=== PATIENT | male | born 1985 | race Caucasian/White ===

== ENCOUNTER → 2021-06-22 14:32 | Outpatient (CLI) | payer BC, SELFPAY | PROVIDERS: PCP Internal Medicine Adolescent Medicine; Visit Provider Urology | DX: Z01.812 Encounter for preprocedural laboratory examination (principal); Z11.52 Encounter for screening for COVID-19; Z30.2 Encounter for sterilization | CPT/HCPCS: C9803; U0003; U0005 ==

== ENCOUNTER 2021-06-24 08:43 | Day surgery (SDC) | payer BC, SELFPAY ==
[2021-06-22 11:13] VITALS: BMI 23.1
[2021-06-24 09:01] VITALS: BP 126/82; PULSE 66; RESP 16; TEMP 36.7; O2SAT 100
[2021-06-24 10:38] VITALS: BP 96/57; PULSE 94; RESP 18; TEMP 36.5; O2SAT 97
[2021-06-24 10:48] VITALS: BP 103/81; PULSE 85; RESP 18; O2SAT 100
--- NOTE | 2021-06-24 10:49 | P.PN_ITS ---
[facility] Anesthesia Checklist - Patient Identification Patient Identification: Arm Band - Structural Data Admitted From: Home Planned Operative Procedure/s: vasectomy Consent for Planned Operative Procedure(s) Verified: Yes Verified Documents: Surgical Consent, History and Physical - Additional verifications Anesthesia Reactions: No Hx Blood Transfusions: No Blood Transfusion Reaction: No - Airway Assessment C-Spine Mobility Assessed: Yes (mp2) TMJ Mobility Assessed: Yes Dentition: Good Dentition - Neurological Assessment Level of Consciousness: Awake, Alert - Anesthesia Plan Anesthesia Risk discussed: Yes Anesthesia Plan: Verified ASA Class: I Anesthesia Type: MAC [facility] History I have reviewed the patient's past medical history: Yes Medical History: Denies:: Cancer, Diabetes Mellitus Type 1, Diabetes Mellitus Type 2, Internal Pacemaker, MRSA, Seizures *Have you ever received a pneumonia vaccine?: No *Have you received a flu vaccine this season?: No Other Medical History: Denies: Blood Transfusion Reaction Anesthesia experience/problems:: nac Other Surgeries: Yes: Hernia Repair. No: Pacemaker Amputation: No Fractures: No - *Social History Last grade of school completed: Some college Smoking Status: Never smoker Alcohol Intake: never Alcohol Intake Frequency:: holidays/special occasions only Substance Use Type: denies use *Occupational Status:: employed Housing: house Household Members: spouse *Travel in the last 8 weeks: Inside the [place] Family Hx:: No significant family history
--- NOTE | 2021-06-24 10:56 | P.OP_ITS ---
Date of procedure: 06/24/21 Pre-op Diagnosis:: Sterilization all Post-op Diagnosis:: Sterilization Procedure performed:: Vasectomy Surgeon:: Michael Fairbanks MD MANAGER OF CORPORATE COMMUNICATIONS:: Bjorn Beth Anesthesia: MAC Estimated blood loss (mL): 2 Clinical Note:: 36-year-old white male presents for vasectomy. Preoperative consultation performed in the office a week ago. Operative findings:: Scrotal examination within normal limits. Vasectomy was performed without complication. Operative note:: Patient taken to the operating room after informed consent was obtained. He was placed on the operating table in the supine position and monitored anesthesia care administered. He was prepped draped in the standard surgical fashion. Scrotal examination was within normal limits. The testicles were of normal size and shape without masses. Left vas was identified and brought up to the midline raphae. Local anesthetic was placed under the skin in Of the midline raphae and around the left vas. Incision was then made in the midline raphae and a tenaculum was used to grasp the vas and the vaginal sheath was incised. The adventitial tissue was dissected away from the vas proper and 1 Hemoclip was placed distally and 2 were placed proximally. A 1 cm segment of the vas was excised. The vasal lumen was cauterized proximally and distally. Hemostasis achieved of the surrounding tissues and the vas dropped back into the left hemiscrotum. The right vas was then brought up through the same midline incision. Local anesthetic was placed in and around the right vas. The vasal sheath was incised and the surrounding connective tissue stripped away from the vas proper. 1 clip placed distally and 2 proximally. 1 cm segment excised and the vasal lumens were cauterized. Hemostasis achieved of the surrounding tissue and one 3-0 chromic suture placed to close the skin in a horizontal mattress fashion. Sponge needle instrument count were correct at the end of the case. There is minimal blood loss and patient tolerated well. Condition: stable Disposition: same day Specimens:: vas segments Complications:: None
[2021-06-24 10:58] VITALS: BP 107/68; PULSE 74; RESP 18; O2SAT 100
[2021-06-24 11:10] VITALS: BP 112/71; PULSE 75; RESP 18; O2SAT 100
[2021-06-24 11:55] VITALS: TEMP 43
== END 2021-06-24 11:18 | disposition home or self-care (01) ==
LOC: OR 08:47
PROVIDERS: PCP Internal Medicine Adolescent Medicine; Visit Provider Urology
PROC: (CPT 55250; principal; 2021-06-24 09:45)
DX: Z30.2 Encounter for sterilization (principal)
CPT/HCPCS: 55250